=== PATIENT | male | born 1940 | race Caucasian/White ===

== ENCOUNTER 2017-01-20 13:08 | Emergency (ER) | payer OTHER ==
[~2017-01-20] VITALS: Ht 172.7 cm; Wt 80.0 kg
[2017-01-20] MEDS ORDERED: ATOR10TA69 PO (13:12)
[2017-01-20] MEDS ORDERED: ASPI-1159 PO (13:12)
[2017-01-20] MEDS ORDERED: AMLO2.5T45 PO (13:12)
[2017-01-20] MEDS ORDERED: METO-296 PO (13:12)
[2017-01-20] MEDS ORDERED: QUET25TA PO (13:12)
[2017-01-20] MEDS ORDERED: BUPR-43 PO (13:12)
[2017-01-20] MEDS ORDERED: ZOLP5TAB2 PO (13:12)
[2017-01-20] MEDS ORDERED: BACITRACIN ZINC OINT UDPKT TOP ONE (13:30)
[2017-01-20] MEDS ORDERED: LIDOCAINE HCL 1%/EPI 1:200,000 30 ML VIAL MC ONE (13:30)
[2017-01-20 14:50] VITALS: BP 143/84
== END 2017-01-20 15:06 | disposition home or self-care (01) ==
LOC: ER 13:13
DX: S01.81XA Laceration without foreign body of other part of head, initial encounter (principal); I10 Essential (primary) hypertension; E78.00 Pure hypercholesterolemia, unspecified; Z79.82 Long term (current) use of aspirin; W18.40XA Slipping, tripping and stumbling without falling, unspecified, initial encounter; Y93.89 Activity, other specified; Y92.89 Other specified places as the place of occurrence of the external cause; Y99.8 Other external cause status
CPT/HCPCS: 12011; 70450; 99284